=== PATIENT | female | born 1985 | race Caucasian/White ===

== ENCOUNTER 2016-10-02 09:13 | Emergency (ER) | payer MEDICAID ==
[~2016-10-02] VITALS: Ht 167.6 cm; Wt 59.0 kg
[~2016-10-02 09:13] MED LIST: ALBU2.5V13 IH
[2016-10-02 09:46] VITALS: BP 112/64
[2016-10-02 12:18] LABS: CLARITY URINE CLEAR (CLEAR); COLOR URINE YELLOW (YELLOW); GLUCOSE URINE NEGATIVE (NEGATIVE); KETONES URINE TRACE (NEGATIVE); LEUKOCYTE ESTERASE URINE TRACE (NEGATIVE); NITRITE URINE NEGATIVE (NEGATIVE); OCCULT BLOOD URINE TRACE (NEGATIVE); PH URINE 5.5 (4.5-8.0); PROTEIN URINE NEGATIVE (NEGATIVE); SPECIFIC GRAVITY URINE 1.008 (1.005-1.030); UROBILINOGEN URINE 0.2 E.U./dL (0.2-1.0)
== END 2016-10-02 13:39 | disposition home or self-care (01) ==
LOC: ER 09:14
DX: R05 Cough (principal); R50.9 Fever, unspecified; J00 Acute nasopharyngitis [common cold]; J45.909 Unspecified asthma, uncomplicated
CPT/HCPCS: 71010; 81001; 81025; 99285

== ENCOUNTER 2017-04-20 04:05 | Emergency (ER) | payer MEDICAID ==
[~2017-04-20] VITALS: Ht 160 cm; Wt 58.0 kg
[2017-04-20] MEDS ORDERED: IBUPROFEN 600MG TABLET PO STA (07:01)
[2017-04-20 07:46] VITALS: BP 118/74
== END 2017-04-20 08:12 | disposition home or self-care (01) ==
LOC: ER 04:33
DX: H73.893 Other specified disorders of tympanic membrane, bilateral (principal); H69.80 Other specified disorders of Eustachian tube, unspecified ear; J45.909 Unspecified asthma, uncomplicated
CPT/HCPCS: 99283

== ENCOUNTER 2017-04-20 16:49 | Emergency (ER) | payer MEDICAID ==
[~2017-04-20] VITALS: Ht 160 cm; Wt 60.0 kg
[2017-04-20 20:55] VITALS: BP 122/66
== END 2017-04-20 21:10 | disposition home or self-care (01) ==
LOC: ER 16:49
DX: Z76.0 Encounter for issue of repeat prescription (principal); J45.909 Unspecified asthma, uncomplicated
CPT/HCPCS: 81025; 99282

== ENCOUNTER 2017-05-08 16:52 | Emergency (ER) | payer MEDICAID ==
[~2017-05-08] VITALS: Ht 160 cm; Wt 5.0 kg
[2017-05-08 21:35] VITALS: BP 125/79
== END 2017-05-08 22:05 | disposition home or self-care (01) ==
LOC: ER 18:17
DX: F41.9 Anxiety disorder, unspecified (principal); J45.909 Unspecified asthma, uncomplicated
CPT/HCPCS: 99282

== ENCOUNTER 2017-06-03 18:22 | Emergency (ER) | payer MEDICAID ==
[~2017-06-03] VITALS: Ht 160 cm; Wt 54.5 kg
[2017-06-03 19:22] VITALS: BP 109/54
== END 2017-06-03 22:00 | disposition left against medical advice (07) ==
LOC: ER 21:30
DX: F41.9 Anxiety disorder, unspecified (principal); Z53.21 Procedure and treatment not carried out due to patient leaving prior to being seen by health care provider

== ENCOUNTER 2018-07-20 16:44 | Emergency (ER) | payer MEDICAID ==
[~2018-07-20] VITALS: Ht 160 cm; Wt 59.0 kg
[2018-07-20] MEDS ORDERED: IBUPROFEN 600MG TABLET PO ONE (18:30)
[2018-07-20 20:08] VITALS: BP 118/68
== END 2018-07-20 20:09 | disposition home or self-care (01) ==
LOC: ER 16:44
DX: S69.81XA Other specified injuries of right wrist, hand and finger(s), initial encounter (principal); F41.9 Anxiety disorder, unspecified; J45.909 Unspecified asthma, uncomplicated; X58.XXXA Exposure to other specified factors, initial encounter; Y93.89 Activity, other specified; Y92.89 Other specified places as the place of occurrence of the external cause; Y99.8 Other external cause status
CPT/HCPCS: 29125; 73110; 81025; 99283

== ENCOUNTER 2018-11-06 14:16 | Emergency (ER) | payer MEDICAID ==
[~2018-11-06] VITALS: Ht 162.6 cm; Wt 60.0 kg
[2018-11-06 14:52] VITALS: BP 103/57
[2018-11-06 18:20] LABS: CLARITY URINE CLEAR (CLEAR); COLOR URINE YELLOW (YELLOW); KETONES URINE 1+ (NEGATIVE); LEUKOCYTE ESTERASE URINE NEGATIVE (NEGATIVE); NITRITE URINE NEGATIVE (NEGATIVE); OCCULT BLOOD URINE NEGATIVE (NEGATIVE); PROTEIN URINE NEGATIVE (NEGATIVE); UROBILINOGEN URINE 0.2 E.U./dL (0.2-1.0)
== END 2018-11-06 18:25 | disposition home or self-care (01) ==
LOC: ER 17:03
DX: S00.83XA Contusion of other part of head, initial encounter (principal); W22.8XXA Striking against or struck by other objects, initial encounter; Y93.89 Activity, other specified; Y92.89 Other specified places as the place of occurrence of the external cause; Y99.8 Other external cause status; J45.909 Unspecified asthma, uncomplicated
CPT/HCPCS: 81025; 99283

== ENCOUNTER 2018-11-08 13:20 | Emergency (ER) | payer MEDICAID ==
[~2018-11-08] VITALS: Ht 160 cm; Wt 60.0 kg
[2018-11-08 16:21] VITALS: BP 129/83
== END 2018-11-08 16:22 | disposition home or self-care (01) ==
LOC: ER 13:20
DX: S00.83XA Contusion of other part of head, initial encounter (principal); W20.8XXA Other cause of strike by thrown, projected or falling object, initial encounter; Y93.89 Activity, other specified; Y92.480 Sidewalk as the place of occurrence of the external cause
CPT/HCPCS: 70486; 81025; 99284

== ENCOUNTER 2019-04-23 10:51 | Emergency (ER) | payer MEDICAID ==
[~2019-04-23] VITALS: Ht 157.5 cm; Wt 65.0 kg
[2019-04-23 13:16] VITALS: BP 125/68
== END 2019-04-23 13:17 | disposition home or self-care (01) ==
LOC: ER 10:51
DX: R05 Cough (principal); R09.81 Nasal congestion
CPT/HCPCS: 99283

== ENCOUNTER 2019-06-10 14:31 | Emergency (ER) | payer MEDICAID ==
[~2019-06-10] VITALS: Ht 157.5 cm; Wt 52.0 kg
[2019-06-10 14:35] VITALS: BP 122/76
== END 2019-06-10 17:12 | disposition left against medical advice (07) ==
LOC: ER 14:44
DX: R51 Headache (principal); Z53.21 Procedure and treatment not carried out due to patient leaving prior to being seen by health care provider

== ENCOUNTER 2023-11-27 17:25 | Emergency (ER) | payer MEDICAID, OTHER ==
[~2023-11-27] VITALS: Ht 160 cm; Wt 63.0 kg
[2023-11-27 17:37] VITALS: BP 152/83; PULSE 95; RESP 16; TEMP 98.2; O2SAT 97
[2023-11-27 18:22] LABS: CHLORIDE 104 mEq/L (98-107); POTASSIUM 3.7 mEq/L (3.5-5.1); SODIUM 134 mEq/L (136-145)
[2023-11-27 18:23] LABS: CARBON DIOXIDE 24 mEq/L (21-32)
[2023-11-27 18:26] LABS: BASOPHILS % 0.3 % (0.0-2.0); DIFFERENTIAL COMMENT 0; EOSINOPHILS % 1.4 % (0.0-5.0); HEMATOCRIT. 38.7 % (36.0-48.0); HEMOGLOBIN. 12.5 g/dL (12.0-16.0); LYMPHOCYTES % 24.9 % (20.0-50.0); MEAN CORPUSCULAR HEMOGLOBIN 25.1 pg (28.0-32.0); MEAN CORPUSCULAR HGB CONC 32.2 g/dL (31.0-37.0); MEAN PLATELET VOLUME 9.3 fl (7.4-10.4); MONOCYTES % 8.4 % (2.0-8.0); PLATELET 343 x1000/uL (130-400); RED BLOOD CELL COUNT 4.96 mill/uL (4.2-5.4); RED CELL DISTRIBUTION WIDTH 17.7 % (11.6-14.6); WHITE BLOOD COUNT 6.1 x1000/uL (4.5-11.0)
[2023-11-27 18:28] LABS: CREATININE 0.7 mg/dL (0.6-1.0); GLUCOSE 105 mg/dL (70-105); UREA NITROGEN BLOOD 10 mg/dL (9-23)
[2023-11-27 18:29] LABS: ALANINE AMINOTRANSFERASE < 7 IU/L (10-49)
[2023-11-27 18:30] LABS: ALBUMIN 4.9 g/dL (3.2-4.8); ASPARTATE AMINOTRANSFERASE 18 IU/L (<34); BILIRUBIN DIRECT 0.2 mg/dL (<=3.0); BILIRUBIN TOTAL 0.6 mg/dL (0.1-1.0)
[2023-11-27 19:02] LABS: HCG SCREEN NEGATIVE
== END 2023-11-27 20:20 | disposition home or self-care (01) ==
LOC: ER 17:25
DX: B34.9 Viral infection, unspecified (principal); R05.9 Cough, unspecified; R09.81 Nasal congestion; R19.7 Diarrhea, unspecified
CPT/HCPCS: 36415; 80048; 80076; 84703; 85025; 86850; 86900; 99283